=== PATIENT | male | born 1955 | race Caucasian/White ===

== ENCOUNTER 2023-08-07 10:45 | Emergency (ER) | payer BC ==
[~2023-08-07] VITALS: Ht 177.8 cm; Wt 100.0 kg
[2023-08-07 10:46] VITALS: TEMP 97.2
[2023-08-07 11:15] LABS: BASOPHILS # (AUTO) 0.1 X10'3 (0-0.2); BASOPHILS % (AUTO) 0.6 % (0-1); EOSINOPHILS # (AUTO) 0.1 X10'3 (0-0.9); EOSINOPHILS % (AUTO) 0.8 % (0-6); HEMATOCRIT 45.2 % (42.0-52.0); HEMOGLOBIN 15.4 g/dl (14.0-17.9); LYMPHOCYTES # (AUTO) 3.3 X10'3 (1.1-4.8); LYMPHOCYTES % (AUTO) 41.4 % (21-51); MEAN CORPUSCULAR HEMOGLOBIN 31.1 PG (27.0-31.0); MEAN CORPUSCULAR HGB CONC 34.2 g/dL (33.0-36.5); MEAN CORPUSCULAR VOLUME 90.9 FL (78-98); MEAN PLATELET VOLUME 8.2 FL (7.4-10.4); MONOCYTES # (AUTO) 0.3 X10'3 (0-0.9); MONOCYTES % (AUTO) 4.3 % (2-12); NEUTROPHILS # (AUTO) 4.3 X10'3 (1.8-7.7); NEUTROPHILS % (AUTO) 52.9 % (42-75); PLATELET COUNT 268 X10'3 (140-440); RED BLOOD COUNT 4.97 X10'6 (4.70-6.10); RED CELL DISTRIBUTION WIDTH 13.4 % (11.5-14.5)
[2023-08-07 11:25] LABS: ALANINE AMINOTRANSFERASE 25 U/L (12-78); ALBUMIN 4.1 G/DL (3.4-5.0); ALKALINE PHOSPHATASE 92 IU/L (46-116); ANION GAP 9 (8-16); ASPARTATE AMINO TRANSFERASE 14 U/L (10-37); BILIRUBIN,TOTAL 0.5 MG/DL (0.1-1.0); BLOOD UREA NITROGEN 12 MG/DL (7-18); BUN/CREATININE RATIO 14.6 (10.0-20.0); CHLORIDE 102 MMOL/L (99-107); CREATININE 0.82 MG/DL (0.60-1.10); GLUCOSE 197 MG/DL (70-104); POTASSIUM 4.1 MMOL/L (3.5-5.1); SODIUM 140 MMOL/L (135-145); TOTAL CARBON DIOXIDE 28.8 MMOL/L (24-32); TOTAL PROTEIN 8.2 G/DL (6.4-8.2); eCRCL 89 ML/MIN; eGFR > 90 ML/MIN
[2023-08-07 11:33] LABS: PRO BRAIN NATRIURETIC PEPTIDE 310 PG/ML (0-125)
[2023-08-07] MEDS ORDERED: LABE100T8 PO (13:12)
[2023-08-07 13:32] VITALS: BP 191/82; PULSE 52; RESP 16; O2SAT 92
== END 2023-08-07 13:35 | disposition home or self-care (01) ==
LOC: ER 10:45
DX: I10 Essential (primary) hypertension (principal); E78.00 Pure hypercholesterolemia, unspecified; E11.9 Type 2 diabetes mellitus without complications; I25.10 Atherosclerotic heart disease of native coronary artery without angina pectoris
CPT/HCPCS: 36415; 80053; 82948; 83880; 84484; 85025; 93005; 99284

== ENCOUNTER 2023-08-19 13:01 | Emergency (ER) | payer BC ==
[~2023-08-19] VITALS: Ht 177.8 cm; Wt 101.4 kg
[~2023-08-19 13:01] MED LIST: LABE100T8 PO
[2023-08-19 13:02] VITALS: TEMP 98.6
[2023-08-19 13:51] LABS: BASOPHILS % (AUTO) 0.3 % (0-1); EOSINOPHILS # (AUTO) 0.1 X10'3 (0-0.9); EOSINOPHILS % (AUTO) 0.9 % (0-6); HEMATOCRIT 41.4 % (42.0-52.0); HEMOGLOBIN 14.1 g/dl (14.0-17.9); LYMPHOCYTES # (AUTO) 2.7 X10'3 (1.1-4.8); LYMPHOCYTES % (AUTO) 34.4 % (21-51); MEAN CORPUSCULAR HEMOGLOBIN 30.8 PG (27.0-31.0); MEAN CORPUSCULAR HGB CONC 34.1 g/dL (33.0-36.5); MEAN CORPUSCULAR VOLUME 90.3 FL (78-98); MEAN PLATELET VOLUME 8.4 FL (7.4-10.4); MONOCYTES # (AUTO) 0.5 X10'3 (0-0.9); MONOCYTES % (AUTO) 6.6 % (2-12); NEUTROPHILS # (AUTO) 4.5 X10'3 (1.8-7.7); NEUTROPHILS % (AUTO) 57.8 % (42-75); PLATELET COUNT 254 X10'3 (140-440); RED BLOOD COUNT 4.59 X10'6 (4.70-6.10); RED CELL DISTRIBUTION WIDTH 13.3 % (11.5-14.5); WHITE BLOOD COUNT 7.8 X10'3 (4.5-11.0)
[2023-08-19 14:10] LABS: ALBUMIN 3.6 G/DL (3.4-5.0); ANION GAP 9 (8-16); BLOOD UREA NITROGEN 12 MG/DL (7-18); BUN/CREATININE RATIO 13.8 (10.0-20.0); CALCIUM 8.3 MG/DL (8.5-10.1); CHLORIDE 104 MMOL/L (99-107); CREATININE 0.87 MG/DL (0.60-1.10); GLUCOSE 117 MG/DL (70-104); MAGNESIUM 1.8 MG/DL (1.5-2.4); PRO BRAIN NATRIURETIC PEPTIDE 184 PG/ML (0-125); SODIUM 141 MMOL/L (135-145); TOTAL CARBON DIOXIDE 28.1 MMOL/L (24-32); eCRCL 84 ML/MIN; eGFR 87 ML/MIN
[2023-08-19 14:21] VITALS: O2SAT 96
[2023-08-19] MEDS ORDERED: iohexol 350MG/ML 100ml bottle IV ONE (14:26)
[2023-08-19] MEDS: cloNIDine 0.1 mg tablet PO ONE (16:19)
[2023-08-19 17:33] VITALS: BP 133/44; PULSE 57; RESP 19
== END 2023-08-19 17:46 | disposition home or self-care (01) ==
LOC: ER 13:02
DX: R51.9 Headache, unspecified (principal); I10 Essential (primary) hypertension; E78.00 Pure hypercholesterolemia, unspecified; E11.9 Type 2 diabetes mellitus without complications; I25.10 Atherosclerotic heart disease of native coronary artery without angina pectoris
CPT/HCPCS: 36415; 70450; 70496; 70498; 71045; 80048; 83735; 83880; 84484; 85025; 93005; 99285; J3490; Q9967

== ENCOUNTER 2023-09-22 08:07 | Outpatient (CLI) | payer BC ==
[2023-09-22 08:37] LABS: BASOPHILS % (AUTO) 0.4 % (0-1); EOSINOPHILS % (AUTO) 0.7 % (0-6); HEMATOCRIT 42.9 % (42.0-52.0); HEMOGLOBIN 14.7 g/dl (14.0-17.9); LYMPHOCYTES # (AUTO) 1.7 X10'3 (1.1-4.8); LYMPHOCYTES % (AUTO) 27.2 % (21-51); MEAN CORPUSCULAR HGB CONC 34.3 g/dL (33.0-36.5); MEAN CORPUSCULAR VOLUME 90.4 FL (78-98); MEAN PLATELET VOLUME 8.1 FL (7.4-10.4); MONOCYTES # (AUTO) 0.4 X10'3 (0-0.9); MONOCYTES % (AUTO) 6.3 % (2-12); NEUTROPHILS # (AUTO) 4.2 X10'3 (1.8-7.7); NEUTROPHILS % (AUTO) 65.4 % (42-75); PLATELET COUNT 237 X10'3 (140-440); RED BLOOD COUNT 4.75 X10'6 (4.70-6.10); RED CELL DISTRIBUTION WIDTH 13.2 % (11.5-14.5); WHITE BLOOD COUNT 6.4 X10'3 (4.5-11.0)
[2023-09-22 09:17] LABS: ALANINE AMINOTRANSFERASE 24 U/L (12-78); ALBUMIN 3.6 G/DL (3.4-5.0); ALKALINE PHOSPHATASE 74 IU/L (46-116); ANION GAP 7 (8-16); ASPARTATE AMINO TRANSFERASE 14 U/L (10-37); BILIRUBIN,TOTAL 0.6 MG/DL (0.1-1.0); BLOOD UREA NITROGEN 9 MG/DL (7-18); BUN/CREATININE RATIO 9.8 (10.0-20.0); CALCIUM 8.4 MG/DL (8.5-10.1); CHLORIDE 106 MMOL/L (99-107); CHOL/HDL RATIO 3.8 (0.00-4.99); CHOLESTEROL 165 MG/DL (0-200); CREATININE 0.92 MG/DL (0.60-1.10); GLUCOSE 136 MG/DL (70-104); HDL CHOLESTEROL 44 MG/DL (35-60); LDL CHOLESTEROL 100 MG/DL (50-100); POTASSIUM 4.6 MMOL/L (3.5-5.1); SODIUM 142 MMOL/L (135-145); TOTAL CARBON DIOXIDE 29.2 MMOL/L (24-32); TOTAL PROTEIN 7.2 G/DL (6.4-8.2); TRIGLYCERIDES 62 MG/DL (20-135); eGFR 82 ML/MIN
[2023-09-22 09:27] LABS: HEMOGLOBIN A1C 7.2 % (4.5-6.2)
== END 2023-09-22 23:59 | disposition home or self-care (01) ==
LOC: LAB 08:07
PROVIDERS: ATTEND Nurse Practitioner
DX: E11.9 Type 2 diabetes mellitus without complications (principal); I10 Essential (primary) hypertension
CPT/HCPCS: 36415; 80053; 80061; 83036; 85025

== ENCOUNTER 2023-12-03 09:31 | Emergency (ER) | payer BC ==
[~2023-12-03] VITALS: Ht 175.3 cm; Wt 100.0 kg
[2023-12-03] MEDS ORDERED: METF-1203 PO (10:09)
[2023-12-03] MEDS ORDERED: ATOR40TA72 PO (10:09)
[2023-12-03] MEDS ORDERED: AMLO10TA13 PO (10:09)
[2023-12-03] MEDS ORDERED: LANTUS SQ (10:09)
[2023-12-03 10:49] LABS: BASOPHILS % (AUTO) 0.3 % (0-1); EOSINOPHILS % (AUTO) 0.6 % (0-6); HEMATOCRIT 44.8 % (42.0-52.0); LYMPHOCYTES # (AUTO) 2.1 X10'3 (1.1-4.8); LYMPHOCYTES % (AUTO) 28.8 % (21-51); MEAN CORPUSCULAR HGB CONC 33.5 g/dL (33.0-36.5); MEAN CORPUSCULAR VOLUME 92.5 FL (78-98); MEAN PLATELET VOLUME 8.9 FL (7.4-10.4); MONOCYTES # (AUTO) 0.5 X10'3 (0-0.9); MONOCYTES % (AUTO) 6.1 % (2-12); NEUTROPHILS # (AUTO) 4.7 X10'3 (1.8-7.7); NEUTROPHILS % (AUTO) 64.2 % (42-75); PLATELET COUNT 259 X10'3 (140-440); RED BLOOD COUNT 4.84 X10'6 (4.70-6.10); WHITE BLOOD COUNT 7.3 X10'3 (4.5-11.0)
[2023-12-03 11:13] LABS: ALBUMIN 3.8 G/DL (3.4-5.0); ANION GAP 8 (8-16); BLOOD UREA NITROGEN 10 MG/DL (7-18); BUN/CREATININE RATIO 9.5 (10.0-20.0); CALCIUM 8.9 MG/DL (8.5-10.1); CHLORIDE 100 MMOL/L (99-107); CREATININE 1.05 MG/DL (0.60-1.10); GLUCOSE 204 MG/DL (70-104); POTASSIUM 4.4 MMOL/L (3.5-5.1); PRO BRAIN NATRIURETIC PEPTIDE 135 PG/ML (0-125); SODIUM 135 MMOL/L (135-145); TOTAL CARBON DIOXIDE 27.1 MMOL/L (24-32); eCRCL 67 ML/MIN; eGFR 70 ML/MIN
[2023-12-03] MEDS: normal saline 1000ML IV soln IVB ONE (11:15)
[2023-12-03] MEDS: acetaminophen 325mg tablet PO ONE (12:17)
[2023-12-03] MEDS: meclizine 12.5mg tablet PO ONE (12:18)
[2023-12-03] MEDS ORDERED: MECL-226 PO (13:15)
[2023-12-03 13:33] VITALS: BP 157/57; PULSE 50; RESP 16; TEMP 97.9; O2SAT 99
== END 2023-12-03 13:30 | disposition home or self-care (01) ==
LOC: ER 09:32
DX: R42 Dizziness and giddiness (principal); R51.9 Headache, unspecified; M79.602 Pain in left arm; E78.00 Pure hypercholesterolemia, unspecified; I10 Essential (primary) hypertension; I25.10 Atherosclerotic heart disease of native coronary artery without angina pectoris; R06.00 Dyspnea, unspecified; E11.9 Type 2 diabetes mellitus without complications; Z79.899 Other long term (current) drug therapy; Z79.4 Long term (current) use of insulin
CPT/HCPCS: 36415; 71045; 80048; 82948; 83880; 84484; 85025; 93005; 99285; J8597; J7030

== ENCOUNTER 2024-04-19 08:15 | Outpatient (CLI) | payer BC ==
[~2024-04-19 08:15] MED LIST changes: +AMLO10TA13 PO; +ATOR40TA72 PO; +LANTUS SQ; +MECL-226 PO; +METF-1203 PO
[2024-04-20 08:15] LABS: TESTOSTERONE, SERUM 346 ng/dL (264-916)
[2024-04-20] MEDS ORDERED: ALBU18HF2 INH (11:31)
== END 2024-04-19 23:59 | disposition home or self-care (01) ==
LOC: RAD 08:15
PROVIDERS: ATTEND Nurse Practitioner
DX: R79.89 Other specified abnormal findings of blood chemistry (principal)
CPT/HCPCS: 36415; 84402; 84403

== ENCOUNTER 2024-04-20 08:35 | Emergency (ER) | payer BC ==
[~2024-04-20] VITALS: Ht 175.3 cm; Wt 97.7 kg
[2024-04-20 08:58] LABS: BASOPHILS % (AUTO) 0.6 % (0-1); EOSINOPHILS % (AUTO) 0.4 % (0-6); HEMATOCRIT 47.1 % (42.0-52.0); HEMOGLOBIN 16.2 g/dl (14.0-17.9); LYMPHOCYTES # (AUTO) 3.1 X10'3 (1.1-4.8); LYMPHOCYTES % (AUTO) 42.8 % (21-51); MEAN CORPUSCULAR HEMOGLOBIN 31.3 PG (27.0-31.0); MEAN CORPUSCULAR HGB CONC 34.3 g/dL (33.0-36.5); MEAN CORPUSCULAR VOLUME 91.1 FL (78-98); MEAN PLATELET VOLUME 8.2 FL (7.4-10.4); MONOCYTES # (AUTO) 0.5 X10'3 (0-0.9); MONOCYTES % (AUTO) 7.4 % (2-12); NEUTROPHILS # (AUTO) 3.5 X10'3 (1.8-7.7); NEUTROPHILS % (AUTO) 48.8 % (42-75); PLATELET COUNT 280 X10'3 (140-440); RED BLOOD COUNT 5.17 X10'6 (4.70-6.10); RED CELL DISTRIBUTION WIDTH 13.1 % (11.5-14.5); WHITE BLOOD COUNT 7.2 X10'3 (4.5-11.0)
[2024-04-20 10:33] LABS: D-DIMER 0.44 MG/L FEU (0-0.50)
[2024-04-20] MEDS: dexamethasone sod phosphate 10mg/ml inj PO STA (10:40)
[2024-04-20 10:49] LABS: BILIRUBIN,URINE NEGATIVE (Neg); CLARITY,URINE CLEAR (Clear); COLOR,URINE STRAW (Yellow); GLUCOSE, URINE 100 mg/dl (Neg); KETONES,URINE NEGATIVE (Neg); LEUKOCYTE ESTERASE ,URINE NEGATIVE (Neg); NITRITES, URINE NEGATIVE (Neg); OCCULT BLOOD,URINE NEGATIVE (Neg); PH,URINE 6.5 (4.8-8.0); PROTEIN,URINE NEGATIVE (Neg); UROBILINOGEN,URINE 0.2 E.U/dL (0.2-1.0)
[2024-04-20 10:50] LABS: UA COLLECTION TYPE NON-SPECIFIED
[2024-04-20] MEDS: ipratropium/albuterol 3ml nebule NEB ONE (10:58)
[2024-04-20 11:00] VITALS: PULSE 72; RESP 20; O2SAT 100
[2024-04-20 11:01] LABS: ALANINE AMINOTRANSFERASE 29 U/L (12-78); ALBUMIN 4.2 G/DL (3.4-5.0); ALBUMIN/GLOBULIN RATIO 1.1 (1.1-1.5); ALKALINE PHOSPHATASE 74 IU/L (46-116); ANION GAP 17 (8-16); ASPARTATE AMINO TRANSFERASE 20 U/L (10-37); BLOOD UREA NITROGEN 16 MG/DL (7-18); BUN/CREATININE RATIO 13.7 (10.0-20.0); CALCIUM 9.3 MG/DL (8.5-10.1); CHLORIDE 100 MMOL/L (99-107); CREATININE 1.17 MG/DL (0.60-1.10); GLUCOSE 196 MG/DL (70-104); SODIUM 135 MMOL/L (135-145); TOTAL CARBON DIOXIDE 18.4 MMOL/L (24-32); eCRCL 60 ML/MIN; eGFR 62 ML/MIN
[2024-04-20 11:06] VITALS: PULSE 73; RESP 18; O2SAT 100
[2024-04-20 11:06] LABS: PRO BRAIN NATRIURETIC PEPTIDE 129 PG/ML (0-125)
[2024-04-20 11:09] VITALS: BP 162/72; PULSE 70; RESP 20; O2SAT 100
[2024-04-20] MEDS ORDERED: ALBU18HF2 INH (11:31)
[2024-04-20 11:37] VITALS: TEMP 97
[2024-04-23] MEDS ORDERED: ipratropium/albuterol 3ml nebule NEB PRN (16:25)
== END 2024-04-20 11:40 | disposition home or self-care (01) ==
LOC: ER 08:35
DX: J40 Bronchitis, not specified as acute or chronic (principal); I25.10 Atherosclerotic heart disease of native coronary artery without angina pectoris; E78.00 Pure hypercholesterolemia, unspecified; I10 Essential (primary) hypertension; E11.9 Type 2 diabetes mellitus without complications; Z79.899 Other long term (current) drug therapy; Z79.84 Long term (current) use of oral hypoglycemic drugs; Z20.822 Contact with and (suspected) exposure to COVID-19
CPT/HCPCS: 36415; 71045; 80053; 81003; 83880; 84145; 84484; 85025; 85379; 87811; 93005; 94640; 99285; J1100; 94760

== ENCOUNTER 2024-04-23 12:26 | Inpatient (IN) | payer BC ==
[~2024-04-23] VITALS: Ht 175.3 cm; Wt 100.2 kg
[~2024-04-23 12:26] MED LIST changes: +ALBU18HF2 INH
[2024-04-23 13:11] LABS: BASOPHILS # (AUTO) 0.1 X10'3 (0-0.2); BASOPHILS % (AUTO) 0.7 % (0-1); EOSINOPHILS # (AUTO) 0.2 X10'3 (0-0.9); HEMATOCRIT 48.9 % (42.0-52.0); HEMOGLOBIN 16.7 g/dl (14.0-17.9); LYMPHOCYTES # (AUTO) 3.8 X10'3 (1.1-4.8); LYMPHOCYTES % (AUTO) 39.9 % (21-51); MEAN CORPUSCULAR HGB CONC 34.1 g/dL (33.0-36.5); MEAN CORPUSCULAR VOLUME 91.1 FL (78-98); MEAN PLATELET VOLUME 8.7 FL (7.4-10.4); MONOCYTES # (AUTO) 0.5 X10'3 (0-0.9); MONOCYTES % (AUTO) 5.5 % (2-12); NEUTROPHILS % (AUTO) 51.9 % (42-75); PLATELET COUNT 287 X10'3 (140-440); RED BLOOD COUNT 5.37 X10'6 (4.70-6.10); RED CELL DISTRIBUTION WIDTH 13.2 % (11.5-14.5); WHITE BLOOD COUNT 9.6 X10'3 (4.5-11.0)
[2024-04-23 13:22] LABS: ALANINE AMINOTRANSFERASE 54 U/L (12-78); ALBUMIN 4.3 G/DL (3.4-5.0); ALBUMIN/GLOBULIN RATIO 1.1 (1.1-1.5); ALKALINE PHOSPHATASE 86 IU/L (46-116); ANION GAP 16 (8-16); ASPARTATE AMINO TRANSFERASE 35 U/L (10-37); BILIRUBIN,TOTAL 0.7 MG/DL (0.1-1.0); BLOOD UREA NITROGEN 18 MG/DL (7-18); BUN/CREATININE RATIO 15.4 (10.0-20.0); CALCIUM 9.7 MG/DL (8.5-10.1); CHLORIDE 101 MMOL/L (99-107); CREATININE 1.17 MG/DL (0.60-1.10); GLUCOSE 223 MG/DL (70-104); POTASSIUM 3.5 MMOL/L (3.5-5.1); SODIUM 136 MMOL/L (135-145); TOTAL PROTEIN 8.1 G/DL (6.4-8.2); eCRCL 60 ML/MIN; eGFR 62 ML/MIN
[2024-04-23 13:29] LABS: PRO BRAIN NATRIURETIC PEPTIDE 123 PG/ML (0-125)
[2024-04-23 15:06] LABS: D-DIMER 0.94 MG/L FEU (0-0.50)
[2024-04-23] MEDS ORDERED: HYDROcodone/acetaminophen 10/325mg tab PO PRN ×2 (16:25→16:50)
[2024-04-23] MEDS ORDERED: acetaminophen 325mg tablet PO PRN (16:25)
[2024-04-23] MEDS ORDERED: magnesium sulf-water 4G/100mL 100 ML IV PRN (16:25)
[2024-04-23] MEDS ORDERED: magnesium sulf-water 2g/50mL 50 ML IV PRN (16:25)
[2024-04-23] MEDS ORDERED: potassium Cl 40MEQ/1/2NS 520ml 520 ML IV PRN (16:25)
[2024-04-23] MEDS ORDERED: potassium Cl 20 mEq SR tablet PO PRN ×2 (16:25)
[2024-04-23] MEDS ORDERED: HYDROmorphone/PF 0.2 MG/ML SYRINGE IV PRN (16:25)
[2024-04-23] MEDS ORDERED: morphine 2 MG/ML inj. syringe IV PRN ×2 (16:25→16:50)
[2024-04-23] MEDS ORDERED: magnesium Cl slow-release 64mg tablet PO PRN (16:25)
[2024-04-23] MEDS ORDERED: magnesium hydroxide 30ml (MOM) UD suspension PO PRN (16:25)
[2024-04-23] MEDS ORDERED: mag hydrox/Alum hydrox/simeth 30ml oral suspension PO PRN (16:25)
[2024-04-23] MEDS ORDERED: ondansetron/PF 4mg/2ml inj IV PRN (16:25)
[2024-04-23] MEDS ORDERED: hydrALAZINE 20mg/ml inj. IV PRN (16:35)
[2024-04-23] MEDS ORDERED: ipratropium/albuterol 3ml nebule NEB PRN (16:35)
[2024-04-23] MEDS ORDERED: HYDROcodone/acetaminophen 5mg/325mg tablet PO PRN (16:50)
[2024-04-23] MEDS ORDERED: iohexol 350MG/ML 100ml bottle IV ONE (16:55)
[2024-04-23] MEDS ORDERED: dextrose 50%-water 50ml dispensing syringe IV PRN ×2 (16:55)
[2024-04-23] MEDS ORDERED: glucagon, human recombinant 1mg kit SUBCUT PRN (16:55)
[2024-04-23] MEDS ORDERED: DEXTROSE 15 GM of carb/4 tabs (each vial/BOTTLE has 4 tablets) PO PRN ×2 (16:55)
[2024-04-23] MEDS: INSULIN LISPRO 100 UNIT/ML INSULN.PEN MULTI-DOSE SQ SCH (17:00)
[2024-04-23] MEDS: PERFLUTREN PROTEIN-A MICROSPHR (Optison) 0.22 MG/ML 3ML VIAL IV ONE (17:04)
[2024-04-23 17:20] VITALS: PULSE 67; RESP 14; O2SAT 99
[2024-04-23] MEDS ORDERED: docusate sod 100mg capsule PO SCH (20:00)
[2024-04-23] MEDS: K and/or MAG REPLACEMENT MC SCH (20:00)
[2024-04-23 22:00] VITALS: BP 111/66; PULSE 63; RESP 18; TEMP 98.3; O2SAT 98
[2024-04-23 22:55] VITALS: RESP 20; O2SAT 98
[2024-04-24] VITALS (9 sets, daily range): BP systolic 125–152; BP diastolic 58–71; PULSE 59–69; RESP 14–19; TEMP 97.3–98; O2SAT 95–99
[2024-04-24 07:08] LABS: BASOPHILS % (AUTO) 0.3 % (0-1); EOSINOPHILS # (AUTO) 0.2 X10'3 (0-0.9); EOSINOPHILS % (AUTO) 2.2 % (0-6); HEMATOCRIT 44.8 % (42.0-52.0); LYMPHOCYTES # (AUTO) 2.2 X10'3 (1.1-4.8); LYMPHOCYTES % (AUTO) 32.3 % (21-51); MEAN CORPUSCULAR HEMOGLOBIN 30.6 PG (27.0-31.0); MEAN CORPUSCULAR HGB CONC 33.5 g/dL (33.0-36.5); MEAN CORPUSCULAR VOLUME 91.3 FL (78-98); MEAN PLATELET VOLUME 8.3 FL (7.4-10.4); MONOCYTES # (AUTO) 0.6 X10'3 (0-0.9); MONOCYTES % (AUTO) 8.5 % (2-12); NEUTROPHILS # (AUTO) 3.8 X10'3 (1.8-7.7); NEUTROPHILS % (AUTO) 56.7 % (42-75); PLATELET COUNT 248 X10'3 (140-440); RED CELL DISTRIBUTION WIDTH 13.2 % (11.5-14.5); WHITE BLOOD COUNT 6.7 X10'3 (4.5-11.0)
[2024-04-24 07:41] LABS: ALANINE AMINOTRANSFERASE 40 U/L (12-78); ALBUMIN 3.4 G/DL (3.4-5.0); ALBUMIN/GLOBULIN RATIO 1.1 (1.1-1.5); ALKALINE PHOSPHATASE 64 IU/L (46-116); ANION GAP 11 (8-16); ASPARTATE AMINO TRANSFERASE 16 U/L (10-37); BILIRUBIN,TOTAL 0.7 MG/DL (0.1-1.0); BLOOD UREA NITROGEN 16 MG/DL (7-18); BUN/CREATININE RATIO 16.7 (10.0-20.0); CALCIUM 8.7 MG/DL (8.5-10.1); CHLORIDE 105 MMOL/L (99-107); CREATININE 0.96 MG/DL (0.60-1.10); GLUCOSE 199 MG/DL (70-104); POTASSIUM 4.1 MMOL/L (3.5-5.1); SODIUM 137 MMOL/L (135-145); TOTAL CARBON DIOXIDE 20.8 MMOL/L (24-32); TOTAL PROTEIN 6.6 G/DL (6.4-8.2); eCRCL 74 ML/MIN; eGFR 78 ML/MIN
[2024-04-24] MEDS ORDERED: metFORMIN 500mg tablet PO SCH (20:00)
[2024-04-24] MEDS ORDERED: carVEDilol 3.125mg tablet PO SCH (20:00)
[2024-04-24] MEDS: labetalol 100mg tablet PO SCH (20:06)
[2024-04-25 07:00] VITALS: BP 138/97; PULSE 61; RESP 11; TEMP 97.8; O2SAT 98
[2024-04-25 07:40] LABS: ALANINE AMINOTRANSFERASE 36 U/L (12-78); ALBUMIN 3.4 G/DL (3.4-5.0); ALBUMIN/GLOBULIN RATIO 1.1 (1.1-1.5); ALKALINE PHOSPHATASE 62 IU/L (46-116); ANION GAP 11 (8-16); ASPARTATE AMINO TRANSFERASE 11 U/L (10-37); BILIRUBIN,TOTAL 0.6 MG/DL (0.1-1.0); BLOOD UREA NITROGEN 18 MG/DL (7-18); BUN/CREATININE RATIO 19.8 (10.0-20.0); CALCIUM 8.8 MG/DL (8.5-10.1); CHLORIDE 103 MMOL/L (99-107); CREATININE 0.91 MG/DL (0.60-1.10); GLUCOSE 195 MG/DL (70-104); MAGNESIUM 2.1 MG/DL (1.5-2.4); POTASSIUM 4.4 MMOL/L (3.5-5.1); SODIUM 136 MMOL/L (135-145); TOTAL CARBON DIOXIDE 22.2 MMOL/L (24-32); TOTAL PROTEIN 6.6 G/DL (6.4-8.2); eCRCL 78 ML/MIN; eGFR 83 ML/MIN
[2024-04-25 08:16] VITALS: BP_SYST 138; PULSE 57
[2024-04-25] MEDS: amLODIPine 5mg tablet PO SCH (08:16)
[2024-04-25] MEDS: atorvastatin 20mg tablet PO SCH (08:16)
[2024-04-25 08:18] LABS: BASOPHILS % (AUTO) 0.4 % (0-1); EOSINOPHILS # (AUTO) 0.2 X10'3 (0-0.9); EOSINOPHILS % (AUTO) 2.5 % (0-6); HEMATOCRIT 44.3 % (42.0-52.0); LYMPHOCYTES # (AUTO) 2.4 X10'3 (1.1-4.8); LYMPHOCYTES % (AUTO) 32.5 % (21-51); MEAN CORPUSCULAR HEMOGLOBIN 31.4 PG (27.0-31.0); MEAN CORPUSCULAR VOLUME 92.4 FL (78-98); MEAN PLATELET VOLUME 9.2 FL (7.4-10.4); MONOCYTES # (AUTO) 0.6 X10'3 (0-0.9); MONOCYTES % (AUTO) 8.5 % (2-12); NEUTROPHILS # (AUTO) 4.2 X10'3 (1.8-7.7); NEUTROPHILS % (AUTO) 56.1 % (42-75); PLATELET COUNT 230 X10'3 (140-440); RED BLOOD COUNT 4.79 X10'6 (4.70-6.10); RED CELL DISTRIBUTION WIDTH 13.1 % (11.5-14.5); WHITE BLOOD COUNT 7.5 X10'3 (4.5-11.0)
[2024-04-25] MEDS ORDERED: LISI5TAB22 PO (10:37)
[2024-04-25] MEDS ORDERED: CARV3.12 PO (10:38)
== END 2024-04-25 11:45 | disposition home or self-care (01) | DRG 315 ==
LOC: ER 12:27 → ED HOLD 15:56 → PCU 3S 20:20
PROVIDERS: ADMIT Internal Medicine; ATTEND Internal Medicine
PROC: B32T1ZZ Computerized Tomography (CT Scan) of Left Pulmonary Artery using Low Osmolar Contrast (ICD-10-PCS; principal; 2024-04-23)
PROC: B3201ZZ Computerized Tomography (CT Scan) of Thoracic Aorta using Low Osmolar Contrast (ICD-10-PCS; 2024-04-23)
PROC: B32S1ZZ Computerized Tomography (CT Scan) of Right Pulmonary Artery using Low Osmolar Contrast (ICD-10-PCS; 2024-04-23)
DX: I42.2 Other hypertrophic cardiomyopathy (principal); I50.30 Unspecified diastolic (congestive) heart failure; I27.21 Secondary pulmonary arterial hypertension; I11.0 Hypertensive heart disease with heart failure; R06.09 Other forms of dyspnea; E78.00 Pure hypercholesterolemia, unspecified; I25.10 Atherosclerotic heart disease of native coronary artery without angina pectoris; E11.42 Type 2 diabetes mellitus with diabetic polyneuropathy; J44.9 Chronic obstructive pulmonary disease, unspecified; Z79.4 Long term (current) use of insulin; Z98.61 Coronary angioplasty status
CPT/HCPCS: 36415; 71045; 71250; 71275; 80053; 82948; 83036; 83735; 83880; 84484; 85025; 85379; 87081; 93005; 93306; 94760; 97161; 97530; 99285; G0378; J1815; Q9967

== ENCOUNTER 2024-04-25 15:50 | Emergency (ER) | payer BC, MEDICARE ==
[~2024-04-25] VITALS: Ht 175.3 cm; Wt 97.7 kg
[~2024-04-25 15:50] MED LIST changes: +CARV3.12 PO; -LANTUS SQ; +LISI5TAB22 PO; -MECL-226 PO
[2024-04-25 15:56] VITALS: BP 195/78; PULSE 68; TEMP 97.8; O2SAT 100
[2024-04-25 17:40] VITALS: RESP 22
== END 2024-04-25 17:42 | disposition home or self-care (01) ==
LOC: ER 15:51
DX: R06.09 Other forms of dyspnea (principal); I51.7 Cardiomegaly; E11.9 Type 2 diabetes mellitus without complications; E78.00 Pure hypercholesterolemia, unspecified; I25.10 Atherosclerotic heart disease of native coronary artery without angina pectoris; I10 Essential (primary) hypertension; Z79.899 Other long term (current) drug therapy; Z79.84 Long term (current) use of oral hypoglycemic drugs
CPT/HCPCS: 99281